=== PATIENT | female | born 1985 | race Caucasian/White ===

== ENCOUNTER → 2016-03-09 | Outpatient (CLI) | payer BC ==
[~2016-03-09] MED LIST: BUSPAR DIVIDOSE15 MG PO; MOTRIN 600600 MG/TAB PO; PERCOCET 325 MG1 TA2 PO; ZOLOFT 50MG50 MG PO
== END ==
LOC: BHSO 11:39
DX: F41.1 Generalized anxiety disorder (principal)

== ENCOUNTER → 2016-08-02 | Outpatient (CLI) | payer BC | LOC: BHSO 10:56 | DX: F42.8 Other obsessive-compulsive disorder (principal) ==

== ENCOUNTER → 2017-01-03 | Outpatient (CLI) | payer BC | LOC: BHSO 09:10 | DX: F41.1 Generalized anxiety disorder (principal) ==

== ENCOUNTER → 2017-06-06 | Outpatient (CLI) | payer BC | LOC: BHSO 08:14 | DX: F42.8 Other obsessive-compulsive disorder (principal) | CPT/HCPCS: G0463 ==

== ENCOUNTER → 2017-07-08 | Outpatient (CLI) | payer BC | LOC: BHSO 08:27 | DX: F42.8 Other obsessive-compulsive disorder (principal) | CPT/HCPCS: G0463 ==

== ENCOUNTER → 2017-10-11 | Outpatient (CLI) | payer BC | LOC: BHSO 08:12 | DX: F42.8 Other obsessive-compulsive disorder (principal) | CPT/HCPCS: G0463 ==

== ENCOUNTER → 2017-11-23 | Outpatient (CLI) | payer BC | LOC: BHSO 09:01 | DX: F42.8 Other obsessive-compulsive disorder (principal) | CPT/HCPCS: G0463 ==

== ENCOUNTER → 2018-02-21 | Outpatient (CLI) | payer BC | LOC: BHSO 09:23 | DX: F42.8 Other obsessive-compulsive disorder (principal) | CPT/HCPCS: G0463 ==

== ENCOUNTER → 2018-03-21 | Outpatient (CLI) | payer BC | LOC: BHSO 09:45 | DX: F42.8 Other obsessive-compulsive disorder (principal) | CPT/HCPCS: G0463 ==

== ENCOUNTER 2018-03-31 05:37 | Inpatient (IN) | payer BC | END 2018-04-02 10:30 | disposition home or self-care (01) | DRG 785 | LOC: OB 05:37 | PROVIDERS: ADMIT Student in an Organized Health Care Education/Training Program | PROC: 10D00Z1 Extraction of Products of Conception, Low, Open Approach (ICD-10-PCS; principal; 2018-03-31) | PROC: 0UT70ZZ Resection of Bilateral Fallopian Tubes, Open Approach (ICD-10-PCS; 2018-03-31) | DX: O34.211 Maternal care for low transverse scar from previous cesarean delivery (principal); Z3A.39 39 weeks gestation of pregnancy; Z37.0 Single live birth; O99.344 Other mental disorders complicating childbirth; F41.9 Anxiety disorder, unspecified; O26.893 Other specified pregnancy related conditions, third trimester; Z67.11 Type A blood, Rh negative; Z40.03 Encounter for prophylactic removal of fallopian tube(s); O69.81X0 Labor and delivery complicated by cord around neck, without compression, not applicable or unspecified ==

== ENCOUNTER → 2018-05-02 | Outpatient (CLI) | payer BC ==
[~2018-05-02] MED LIST changes: +MOTRIN 800800 MG/TAB PO; +PRENATAL
== END ==
LOC: BHSO 11:07
DX: F42.8 Other obsessive-compulsive disorder (principal)
CPT/HCPCS: G0463

== ENCOUNTER → 2018-06-06 | Outpatient (CLI) | payer BC | LOC: BHSO 09:37 | DX: F42.8 Other obsessive-compulsive disorder (principal) | CPT/HCPCS: G0463 ==

== ENCOUNTER → 2018-09-05 | Outpatient (CLI) | payer BC | LOC: BHSO 09:07 | DX: F42.8 Other obsessive-compulsive disorder (principal) | CPT/HCPCS: G0463 ==

== ENCOUNTER → 2019-07-17 | Outpatient (CLI) | payer OTHER | LOC: BHSO 09:42 | DX: F42.8 Other obsessive-compulsive disorder (principal) | CPT/HCPCS: G0463 ==